=== PATIENT | female | born 1955 | race Caucasian/White ===

== ENCOUNTER → 2017-03-15 | Outpatient (CLI) | payer BC | LOC: MC.RAD 08:40 | DX: Z12.31 Encounter for screening mammogram for malignant neoplasm of breast (principal) ==

== ENCOUNTER → 2017-09-12 | Outpatient (CLI) | payer BC | LOC: COL.VAS 13:38 | DX: Z47.1 Aftercare following joint replacement surgery (principal); M79.605 Pain in left leg; R29.898 Other symptoms and signs involving the musculoskeletal system; Z96.651 Presence of right artificial knee joint ==

== ENCOUNTER → 2018-05-17 | Outpatient (CLI) | payer BC | LOC: COL.RAD 13:00 | DX: K80.20 Calculus of gallbladder without cholecystitis without obstruction (principal); N28.89 Other specified disorders of kidney and ureter; N20.0 Calculus of kidney; Z98.84 Bariatric surgery status ==

== ENCOUNTER 2018-05-23 13:49 | Inpatient (IN) | payer BC ==
[~2018-05-23] VITALS: Ht 158.8 cm; Wt 91.0 kg
[2018-06-01] VITALS (22 sets, daily range): BP systolic 101–176; BP diastolic 62–108; PULSE 60–136; TEMP 97.7–99
[2018-06-01] MEDS ORDERED: ZESTRIL 10MG10 MG PO (06:05)
[2018-06-01] MEDS ORDERED: MOBIC15 MG PO (06:05)
[2018-06-01] MEDS ORDERED: EFFEXOR-XR150 MG PO (06:06)
[2018-06-01] MEDS ORDERED: PRIL40 PO (06:06)
[2018-06-01] MEDS ORDERED: VITAMIN B COMPL1 SGL PO (06:07)
[2018-06-01] MEDS ORDERED: ICAPS AREDS SO1 EACH PO (06:07)
[2018-06-01] MEDS ORDERED: B-121000 MCG PO (06:07)
[2018-06-01] MEDS ORDERED: TYLENOL 500MG500 MG PO (06:08)
[2018-06-01] MEDS ORDERED: VITAMIN D 1001000 IU PO (06:08)
[2018-06-01] MEDS ORDERED: IRON TABLETS325 MG PO (06:09)
[2018-06-01] MEDS ORDERED: PRENATAL VITAMI1 TA3 PO (06:09)
--- NOTE | 2018-06-01 06:30 | NUR ---
The patient ambulated back to [facility] independently using a steady gait and appeared to tolerate the activity well. Vital signs obtained. Consent signed. 18G IV started in left forearm with one stick, LR infusing without difficulty. Heart Reg. Lungs clear. Bowel sounds audible. at bedside. Call light is within reach. Will continue to monitor the patient.
--- NOTE | 2018-06-01 07:35 | NUR ---
The patient was taken via cart to CT to have her nephrostomy tube and guide wire placed. The patient's chart was sent with her. Will continue to monitor the patiet when she returns to the unit.
--- NOTE | 2018-06-01 08:10 | NUR ---
PT IS DOING WELL.
--- NOTE | 2018-06-01 08:20 | NUR ---
PT IS DOING WELL. SOME PRESSURE IS FELT.
--- NOTE | 2018-06-01 08:25 | NUR ---
0.5 VERSED AND 25 MCG FENTAYNL GIVEN FOR PRESSURE. PT DOING WELL
--- NOTE | 2018-06-01 08:40 | NUR ---
0843 PT WAS GIVEN 1MG VERSED AND 50MCG FENTANYL. PT TOLERATED THE PROCEDURE. PT WAS TAKEN TO PREOP AND REPORT GIVEN TO ROSS TENA. PRESENT IN THE ROOM
--- NOTE | 2018-06-01 09:00 | NUR ---
The patient arrived back to [facility] from the radiology department with her guide wire and nephrostomy tube in place. Both are secured with a large tegaderm that appears clean, dry, and intact. The patient reports feeling the urge to urinate. The patient's vital signs were obtained with a blood pressure of 171/102. Anesthesia is to be notified of the patinet's continued increased blood pressure.
--- NOTE | 2018-06-01 09:10 | NUR ---
The patient returned to her room after ambulating to the bathroom with the assistance of two nurses and voided a moderate amount of pale red urine. The patient was given Lisinopril 10 mg as ordered by anesthesia at this time. The patient's remains at her bedside. The patient reports increased pain at this time. Anesthesia is to be notified of the patient's reports of pain. Will continue to monitor the patient.
--- NOTE | 2018-06-01 09:28 | NUR ---
PT WAS POSITIONED ON TABLE. TIME OUT DONE. INT PATENT. MONITORING EQUIPMENT PLACED.
--- NOTE | 2018-06-01 09:29 | NUR ---
TOLERATING PROCEDURE WELL. GIVEN INITIAL DOSE OF 1 VERSED AND 50 FENTAYNL AT 0750
--- NOTE | 2018-06-01 09:30 | NUR ---
The patient was given a PRN dose of Morphine 2 mg IV at this time. The patient appears in visible pain at this time. Will continue to monitor the patient.
--- NOTE | 2018-06-01 09:31 | NUR ---
PT TOLERATING WELL
--- NOTE | 2018-06-01 09:37 | NUR ---
PT HAVING LOTS OF PAIN AND PRESSURE. 0.5 MG VERSED AND 25 MCG FENTANYL GIVEN. PT FEELILNG BETTER
--- NOTE | 2018-06-01 09:38 | NUR ---
PT STATES SHE HAS TO GO TO [facility]. PT INFORMED THAT THE WIRE IS IN THE BLADDER AND IS IRRITATING THE BLADDER WALL.
--- NOTE | 2018-06-01 09:43 | NUR ---
The patient calls out with call light to report continued increased pain and was given a PRN dose of Morphine 2 mg at this time. The patient is gripping the side rails and rocking back and forth in discomfort. Anesthesia is to be notified of the patient's continued increased pain with what appears to be no relief from the morphine.
--- NOTE | 2018-06-01 09:55 | NUR ---
The patient was given a dose of Versed and Zofran from Yannick Fletcher CRNA. The nurse adiministered 0.5 mg of Dilaudid IV at this time. The patient was placed on 2L of oxygen per nasal cannula and her oxygen saturation is 100%. remains at her bedside. Will continue to monitor the patient.
--- NOTE | 2018-06-01 10:08 | NUR ---
The patient appears to be resting comfortably on her left side with her eyes closed at this time. Respirations even and unlabored. The patient has oxygen 2L per nasal cannula in place at this with an oxygen saturation of 100%. Call light is within reach. The patient's remains at her bedside. Will continue to monitor the patient.
[2018-06-01 13:45] LABS: HEMATOCRIT 49.4 % (37.0-47.0); HEMOGLOBIN 15.8 g/dl (12.5-16.0); MEAN CELL VOLUME 98 fl (80.0-100.0); MEAN CORPUSCULAR HEMOGLOBIN 31 pg (27.0-31.0); MEAN CORPUSCULAR HGB CONC 32 g/dl (33.0-37.0); MEAN PLATELET VOLUME 9.3 fl (7.4-10.4); PLATELET COUNT 201 K/mm3 (130-400); RED BLOOD COUNT 5.06 M/mm3 (4.10-5.30); REDCELL DISTRIBUTION WIDTH-CV 12.4 % (11.5-14.5)
[2018-06-01 13:56] LABS: BILIRUBIN,TOTAL 0.4 mg/dL (0.0-1.0); CALCIUM 9.3 mg/dL (8.4-10.2); CHOLESTEROL RISK RATIO 3.5; CREATININE, serum 0.65 mg/dL (0.52-1.25); MAGNESIUM 1.8 mg/dL (1.6-2.3); POTASSIUM 4.2 mmol/L (3.4-5.0); TOTAL PROTEIN 6.9 gm/dL (6.4-8.2)
[2018-06-01 14:18] LABS: BAND 1 % (0-10); LYMPHOCYTE 4 % (20.0-51.0); NEUTROPHILS 93 % (42.0-75.2); PLATELET ESTIMATE NORMAL (NORMAL)
[2018-06-01 14:25] LABS: THYROID STIMULATING HORMONE 1.91 uIU/mL (0.465-4.680)
[2018-06-01 17:34] LABS: BASO % 0.1 % (0.0-2.0); GRAN # 14.2 (1.4-6.5); GRAN % 89.9 % (42.2-75.2); HEMATOCRIT 44.8 % (37.0-47.0); HEMOGLOBIN 14.6 g/dl (12.5-16.0); LYMPH # 0.3 (1.2-3.4); LYMPH % 2.1 % (20.0-51.0); MEAN CELL VOLUME 96 fl (80.0-100.0); MEAN CORPUSCULAR HEMOGLOBIN 31 pg (27.0-31.0); MEAN CORPUSCULAR HGB CONC 33 g/dl (33.0-37.0); MEAN PLATELET VOLUME 9.5 fl (7.4-10.4); MONO # 1.2 (0.1-0.6); MONO % 7.4 % (1.7-9.3); PLATELET COUNT 208 K/mm3 (130-400); RED BLOOD COUNT 4.69 M/mm3 (4.10-5.30); REDCELL DISTRIBUTION WIDTH-CV 12.5 % (11.5-14.5)
--- NOTE | 2018-06-01 19:45 | NUR ---
Pt. sitting up in bed at this time. Pt. is A&OX3, assessment complete. IV to lt. forearm patent, IV fluids infusing per orders. Gauze dressing to rt. lateral flank CDI. Barker catheter to DD, tea colored urine noted, with some clots. Pt. denies pain or other needs at this time. Call light within reach.
[2018-06-02 04:16] VITALS: BP 124/90; PULSE 84; TEMP 99.1
--- NOTE | 2018-06-02 06:16 | NUR ---
Pt. slept off and on through the night. Pt. remains A&OX3. IV to lt. forearm infiltrated, new site started to rt. forearm. Pt. tolerated well. IV fluids infusing per orders. Pt. denies pain or other needs.
[2018-06-02 07:02] LABS: BASO % 0.2 % (0.0-2.0); EOS # 0.1 (0.0-0.7); EOS % 1.2 % (0-4.0); GRAN # 7.3 (1.4-6.5); HEMATOCRIT 39.7 % (37.0-47.0); HEMOGLOBIN 12.8 g/dl (12.5-16.0); LYMPH # 1.3 (1.2-3.4); LYMPH % 12.7 % (20.0-51.0); MEAN CELL VOLUME 98 fl (80.0-100.0); MEAN CORPUSCULAR HEMOGLOBIN 32 pg (27.0-31.0); MEAN CORPUSCULAR HGB CONC 32 g/dl (33.0-37.0); MEAN PLATELET VOLUME 9.7 fl (7.4-10.4); MONO # 1.1 (0.1-0.6); MONO % 11.6 % (1.7-9.3); PLATELET COUNT 185 K/mm3 (130-400); RED BLOOD COUNT 4.06 M/mm3 (4.10-5.30); REDCELL DISTRIBUTION WIDTH-CV 12.7 % (11.5-14.5)
[2018-06-02 07:10] LABS: CALCIUM 8.6 mg/dL (8.4-10.2); CREATININE, serum 0.75 mg/dL (0.52-1.25); POTASSIUM 4.3 mmol/L (3.4-5.0)
[2018-06-02 07:35] VITALS: BP 98/67; PULSE 79; TEMP 98.9
--- NOTE | 2018-06-02 10:14 | NUR ---
Patient alert and oriented, answers questions appropriately. See assessment. Barker catheter discontinued at 0650 this a.m. No c/o at this time.
--- NOTE | 2018-06-02 10:43 | NUR ---
Lillie Caruso and Tian here to see patient.
[2018-06-02 11:42] VITALS: BP 142/79; PULSE 83; TEMP 98.5
--- NOTE | 2018-06-02 12:03 | NUR ---
Plan is to return home with Partner Calin . Patient reports that Calin is her healthcare proxy, nothing in writing. Patient denies the use of any DME, PCP is reported as Dmitri Lynch. Patient reports that she uses [facility] for RX. Declines home health. Patients care concerns are, " I want to have some dietary information." Action: SW requested items from pt's nurse and educated pt on resources. No additional needs identified.
--- NOTE | 2018-06-02 12:29 | NUR ---
Nib Finisher offered prayer and support with patient while spouse was in room.
[2018-06-02 15:56] VITALS: BP 116/70; PULSE 78; TEMP 98.3
--- NOTE | 2018-06-02 16:29 | NUR ---
Care resumed from Michelle TENA. Patient up independent in room. She has voided pink tinged urine. Taking adequate Po intake. Denies nausea. Tele on, VSS. Patient provided with toothbrush. She reports not feeling up to a shower. Kyle cooper.
--- NOTE | 2018-06-02 17:55 | NUR ---
Patient sitting up visiting on the phone. Dinner ordered, she denies needs. Will monitor & report off to night nurse Aquiles.
[2018-06-02 19:25] VITALS: BP 119/77; PULSE 86; TEMP 98.9
--- NOTE | 2018-06-02 20:36 | NUR ---
Pt. sitting up in chair at this time. Pt. is A&OX3, assessment complete. INT to rt. forearm patent. Dressing to rt. latereral flank CDI. Pt. reports pain at a 4 at this time. Pt reports she will call when ready for pain medication. Pt. denies further needs, call light within reach.
[2018-06-03 03:40] VITALS: BP 132/91; PULSE 79; TEMP 99
--- NOTE | 2018-06-03 05:42 | NUR ---
Pt. slept well through the night. Pt. remains A&OX3. Pt. denies pain or other needs. Call light within reach.
[2018-06-03 08:01] VITALS: BP 135/88; PULSE 73; TEMP 98.7
--- NOTE | 2018-06-03 10:38 | NUR ---
Discharge instructions reviewed with patient and spouse, verbalized understanding. Discharged ambulatory to auto/home with spouse at 1035.
== END 2018-06-03 10:35 | disposition home or self-care (01) | DRG 660 ==
LOC: INPTSU 06-01 05:07 → SURG 06-01 07:30
PROVIDERS: Internal Medicine Cardiovascular Disease; ADMIT Urology
PROC: 0T733DZ Dilation of Right Kidney Pelvis with Intraluminal Device, Percutaneous Approach (ICD-10-PCS; 2018-06-01)
PROC: 0TC34ZZ Extirpation of Matter from Right Kidney Pelvis, Percutaneous Endoscopic Approach (ICD-10-PCS; principal; 2018-06-01 10:00)
DX: N20.0 Calculus of kidney (principal); N39.0 Urinary tract infection, site not specified; I10 Essential (primary) hypertension; Z86.718 Personal history of other venous thrombosis and embolism; I49.1 Atrial premature depolarization; R00.0 Tachycardia, unspecified; B96.1 Klebsiella pneumoniae [K. pneumoniae] as the cause of diseases classified elsewhere; I95.2 Hypotension due to drugs; T46.4X5A Adverse effect of angiotensin-converting-enzyme inhibitors, initial encounter
CPT/HCPCS: A4314; A9284; C1726; C1769; C1894; C2617; J0690; J1170; J1956; J2250; J2270; J2405; J2543; J2704; J2710; J3010; J3475; J7030; J7120; Q9967

== ENCOUNTER → 2018-05-23 | Outpatient (CLI) | payer BC | LOC: COL.RAD 13:54 | DX: N20.0 Calculus of kidney (principal); N28.9 Disorder of kidney and ureter, unspecified; R93.421 Abnormal radiologic findings on diagnostic imaging of right kidney ==

== ENCOUNTER → 2018-05-29 | Outpatient (CLI) | payer BC | LOC: MC.RAD 04-18 07:40 | DX: Z12.31 Encounter for screening mammogram for malignant neoplasm of breast (principal) ==

== ENCOUNTER → 2018-07-02 | Outpatient (CLI) | payer BC ==
[~2018-07-02] MED LIST: B-121000 MCG PO; EFFEXOR-XR150 MG PO; ICAPS AREDS SO1 EACH PO; IRON TABLETS325 MG PO; MOBIC15 MG PO; PRENATAL VITAMI1 TA3 PO; PRIL40 PO; TYLENOL 500MG500 MG PO; VITAMIN B COMPL1 SGL PO; VITAMIN D 1001000 IU PO; ZESTRIL 10MG10 MG PO
== END ==
LOC: COL.RAD 07:47
DX: N20.0 Calculus of kidney (principal); E21.3 Hyperparathyroidism, unspecified
CPT/HCPCS: A9500

== ENCOUNTER → 2019-06-03 | Outpatient (CLI) | payer BC | LOC: MC.RAD 08:15 | DX: Z12.31 Encounter for screening mammogram for malignant neoplasm of breast (principal) ==

== ENCOUNTER 2019-12-17 15:04 | Inpatient (IN) | payer BC ==
[~2019-12-17] VITALS: Ht 158.8 cm; Wt 93.3 kg
[~2019-12-17 15:04] MED LIST changes: -VITAMIN D 1001000 IU PO; +VITAMIN D31000 IU PO
[2020-01-14] VITALS (12 sets, daily range): BP systolic 103–146; BP diastolic 64–81; PULSE 73–99; TEMP 97.4–98.3
[2020-01-14] MEDS ORDERED: LOPRESSOR 550 MG/TAB PO (06:40)
[2020-01-14] MEDS ORDERED: UROCIT-K 1010 MEQ PO (06:41)
[2020-01-14] MEDS ORDERED: BACTRIM DS 8001 TAB PO (06:47)
[2020-01-14 10:55] LABS: BASO % 0.2 % (0.0-2.0); EOS % 0.2 % (0-4.0); GRAN # 11.7 (1.4-6.5); GRAN % 88.1 % (42.2-75.2); HEMATOCRIT 45.3 % (37.0-47.0); HEMOGLOBIN 14.4 g/dl (12.5-16.0); LYMPH # 1.3 (1.2-3.4); LYMPH % 9.8 % (20.0-51.0); MEAN CELL VOLUME 95 fl (80.0-100.0); MEAN CORPUSCULAR HEMOGLOBIN 30 pg (27.0-31.0); MEAN CORPUSCULAR HGB CONC 32 g/dl (33.0-37.0); MEAN PLATELET VOLUME 9.4 fl (7.4-10.4); MONO # 0.2 (0.1-0.6); MONO % 1.1 % (1.7-9.3); PLATELET COUNT 266 K/mm3 (130-400); RED BLOOD COUNT 4.77 M/mm3 (4.10-5.30)
[2020-01-14 11:09] LABS: CALCIUM 8.3 mg/dL (8.4-10.2); CREATININE, serum 1.19 (0.52-1.25); POTASSIUM 4.9 mmol/L (3.4-5.0)
--- NOTE | 2020-01-14 12:09 | NUR ---
Patient to room via bed from PACU. Alert and oriented but drowsy. Having some pain in her neck and also when takes in deep breaths. Abd lap sites x5 with swiftset, all edges well approximated, no redness/swelling/discharge from any of the sites. LINUS drain to right lower abd compressed with minimal bloody drainage in tubing and bulb. SCDs are in place. Lung sounds clear. Has oxymask in place with oxygen at 5L. SpO2 at 93%. Respiratory rate 16. Oriented to room.
--- NOTE | 2020-01-14 13:56 | NUR ---
Rating pain on right side 8/10 and requests something stronger for pain medication. Administer pain medication as prescribed. Patient sitting up in bed eating clear liquid tray. Denies additional needs at this time.
--- NOTE | 2020-01-14 15:35 | NUR ---
Patient lying in bed in supine position. Sharp pain in right side has gone, only has mid abd pain rating 5/10 at this time that she describes as an ache. LINUS drain compressed with minimal bloody discharge in tubing and bulb. Dressing to LINUS site CDI. Lap sites x5 with all incisions with edges well approximated, swiftset in place, no redness/discharge/swelling noted. Barker to dependent drainage draining tea colored urine. Patient denies any additional needs at this time.
--- NOTE | 2020-01-14 20:21 | NUR ---
Resting in bed. Assessment complete. Lungs clear. Heart sounds normal. Bowels active x4. Pulses present throughout. No edema noted. IV left forearm without complications. Reports 9/10 pain. Given tramadol. X6 lap sites CDI. LINUS drain to bulb suctions. LINUS drain site bloody drainage present. Denies other needs. Barker to dependent drainage. Call light in reach. Will monitor.
--- NOTE | 2020-01-14 22:14 | NUR ---
Reports 8/10 pain after tramadol administration. Given PRN oxycodone. Denies needs. Call light in reach.
--- NOTE | 2020-01-14 23:47 | NUR ---
Resting in bed. Reports oxycodone decreased pain to 4/10. Denies other needs at this time. Call light in reach.
--- NOTE | 2020-01-15 01:52 | NUR ---
Resting in bed. Denies needs. Call light in reach.
[2020-01-15 03:53] VITALS: BP 121/83; PULSE 66; TEMP 98.1
--- NOTE | 2020-01-15 04:21 | NUR ---
Reported 6/10 pain. Will give schedule tylenol. Does not wish to have oxycodone at this time. Denies other needs. Call light in reach.
--- NOTE | 2020-01-15 05:58 | NUR ---
Reports 8/10 pain. Given PRN oxycodone. Denies other needs. Call light in reach.
--- NOTE | 2020-01-15 06:16 | NUR ---
Patient required x1 dose of tramadol and x2 doses of oxycodone for pain control throughout night. Bulb suction on LINUS drain with bloody drainage. Otherwise uneventful night. Resting in bed this AM. Call light in reach.
[2020-01-15 06:24] LABS: BASO % 0.3 % (0.0-2.0); EOS # 0.1 (0.0-0.7); EOS % 0.4 % (0-4.0); GRAN # 10.5 (1.4-6.5); GRAN % 73.2 % (42.2-75.2); HEMATOCRIT 42.2 % (37.0-47.0); HEMOGLOBIN 13.3 g/dl (12.5-16.0); LYMPH # 2.6 (1.2-3.4); LYMPH % 17.8 % (20.0-51.0); MEAN CELL VOLUME 96 fl (80.0-100.0); MEAN CORPUSCULAR HEMOGLOBIN 30 pg (27.0-31.0); MEAN CORPUSCULAR HGB CONC 32 g/dl (33.0-37.0); MEAN PLATELET VOLUME 9.8 fl (7.4-10.4); MONO # 1.2 (0.1-0.6); PLATELET COUNT 242 K/mm3 (130-400)
[2020-01-15 06:55] LABS: CALCIUM 8.2 mg/dL (8.4-10.2); MAGNESIUM 2.1 mg/dL (1.6-2.3)
--- NOTE | 2020-01-15 07:15 | NUR ---
Report given to DARINEL Martinez
[2020-01-15 07:41] VITALS: BP 109/67; PULSE 95; TEMP 98
--- NOTE | 2020-01-15 08:20 | NUR ---
TAMERA Whiting here to see patient.
--- NOTE | 2020-01-15 09:13 | NUR ---
Initial visit; Patient enjoys visiting and was receptive to prayer and thanked Chlorobutadiene Scrubber Operator for offering God's blessings.
--- NOTE | 2020-01-15 09:30 | NUR ---
Patient alert and oriented, answers questions appropriately. See assessment. Abdomen soft, non tender, non distended. Bowel sounds audible x4 quads. No flatus. Lap sites with edges well approximated, no redness or drainage noted. LINUS drain to LLQ with small amount serosanguinous drainage noted. ERAS protocol reviewed with patient. Patient hesitant to get OOB, states she was told she had to stay in bed for 48hours. Reviewed with patient activity orders per Dr Peterson. No other c/o at this time.
--- NOTE | 2020-01-15 09:32 | NUR ---
Barker catheter removed at 0915, tolerated well.
--- NOTE | 2020-01-15 11:08 | NUR ---
Dr Peterson here to see patient.
[2020-01-15 11:24] VITALS: BP 151/90; PULSE 70; TEMP 97.7
--- NOTE | 2020-01-15 11:24 | NUR ---
SW met with the patient to discuss discharge plan. The patient lives in [place] with her , Calin (ph#[phone]). She reports independence with ADLs and has a cane available to her, if needed. The patient's PCP is Dr. Dmitri Lynch and she receives her medications at [facility]. She reports no difficulties obtaining her meds. The patient does not have advanced directives, but she states that her and her have drawn up paperwork and are working on completing them. The patient plans to return home with her upon discharge. No additional needs at this time.
--- NOTE | 2020-01-15 13:59 | NUR ---
LINUS drain removed at this time per drs order.
[2020-01-15 16:00] VITALS: BP 118/78; PULSE 87; TEMP 98.4
[2020-01-15 20:31] VITALS: BP 123/72; PULSE 94; TEMP 98.6
--- NOTE | 2020-01-15 21:00 | NUR ---
PT SITTING UP IN CHAIR AT BEDSIDE. REPORTS PAIN IS "TOLERABLE". HAS LAP SITES X6, OLD DRAIN SITE TO ABDOMEN WITH GAUZE. IS ALERT AND ORIENTED X4. REPORTS PASSING GAS.
[2020-01-16 00:10] VITALS: BP 124/82; PULSE 110; TEMP 97.8
[2020-01-16 04:41] VITALS: BP 110/58; PULSE 72; TEMP 97.6
--- NOTE | 2020-01-16 06:40 | NUR ---
Pt reports more pain this morning, takes Oxycodone 10mg po with scheduled AM meds.
--- NOTE | 2020-01-16 08:00 | NUR ---
PATIENT IS A&O. VSS. TELE INPLACE. PATIENT REPORTS PAIN IN ABD IS TOLERABLE, SHE RECEIVED PAIN MEDS BEFORE SHIFT CHANGE. PATIENT AMBULATING IN ROOM INDEPENDENTLY. ABD LAP SITES X6 ARE CD&I AND SAND MIXER. ABD IS ROUND, SOFT & WITH POSITIVE BOWL SOUNDS. PATIENT IS PASSING GAS, NO BM YET. PATIENT IS EAT/DRINK/VOIDING SUFFICENT AMOUNTS. NO C/O N/V. LEFT FORARM IV TO INT. BREAKFAST TRAY AT BEDSIDE. AM MEDS GIVEN. HEAD TO TOE ASSESSMENT WNL. PATIENT HOPING TO DISCHARGE HOME LATER TODAY. NO OTHER NEEDS AT THIS TIME. CALL LIGHT IN REACH.
[2020-01-16] MEDS ORDERED: LOPRESSOR 225 MG/TAB PO (08:09)
[2020-01-16 08:27] VITALS: BP 124/82; PULSE 50; TEMP 98.6
--- NOTE | 2020-01-16 09:02 | NUR ---
Follow-up; Patient using phone, College Admissions Counselor wished her well and God's blessings.
--- NOTE | 2020-01-16 12:30 | NUR ---
Patient to room 332 from PACU. at the bedside. Patient easily awakes with verbal commmand then falls back to sleep. Yenny RN at the beside. VSS. IV CDI, fluids to gravity. VS monitored post op. Left hip CDI, ice applied. SCD's bilateral legs. Nurse oriented patient and . No further needs expressed from the patient or . Call light within reach
[2020-01-16 13:03] VITALS: BP 121/89; PULSE 114; TEMP 98.7
--- NOTE | 2020-01-16 16:23 | NUR ---
Discharge paperwork reviewed with patient. Patient verbalized an understanding to follow doctors orders. IV removed, tip intact, gauze and coban applied. Patient tolerated well. Personal belongings with patient. No further needs expressed from the patient. Patient taken by wheelchair to vehicle by nursing staff.
== END 2020-01-16 16:20 | disposition home or self-care (01) | DRG 658 ==
LOC: INPTSU 01-14 05:35 → SURG 01-14 07:30
PROVIDERS: ADMIT Urology
PROC: 8E0W4CZ Robotic Assisted Procedure of Trunk Region, Percutaneous Endoscopic Approach (ICD-10-PCS; 2020-01-14)
PROC: 0TB04ZZ Excision of Right Kidney, Percutaneous Endoscopic Approach (ICD-10-PCS; principal; 2020-01-14 07:30)
DX: C64.1 Malignant neoplasm of right kidney, except renal pelvis (principal); I10 Essential (primary) hypertension; R09.02 Hypoxemia; K59.00 Constipation, unspecified; Z98.84 Bariatric surgery status; K21.9 Gastro-esophageal reflux disease without esophagitis; E78.5 Hyperlipidemia, unspecified; Z86.711 Personal history of pulmonary embolism; F32.9 Major depressive disorder, single episode, unspecified; F41.9 Anxiety disorder, unspecified; Z87.442 Personal history of urinary calculi; Z90.710 Acquired absence of both cervix and uterus
CPT/HCPCS: 99223; 99231-AI; 99232-AI; A4314; A9284; J0330; J1100; J2250; J2405; J2704; J3010; J7030; J7120

== ENCOUNTER → 2020-06-04 | Outpatient (CLI) | payer MEDICARE ==
[~2020-06-04] MED LIST changes: +BACTRIM DS 8001 TAB PO; +LOPRESSOR 225 MG/TAB PO; +LOPRESSOR 550 MG/TAB PO; +UROCIT-K 1010 MEQ PO
== END ==
LOC: MC.RAD 07:00
DX: Z12.31 Encounter for screening mammogram for malignant neoplasm of breast (principal)

== ENCOUNTER 2020-07-13 09:22 | Outpatient (RCR) | payer MEDICARE | END 2020-10-11 | disposition still patient (30) | LOC: WSST | DX: R09.89 Other specified symptoms and signs involving the circulatory and respiratory systems (principal); R43.2 Parageusia ==

== ENCOUNTER → 2020-07-14 | Outpatient (CLI) | payer MEDICARE | LOC: COL.RAD 08:17 | DX: R09.89 Other specified symptoms and signs involving the circulatory and respiratory systems (principal) ==

== ENCOUNTER → 2021-06-28 | Outpatient (CLI) | payer MEDICARE | LOC: MC.RAD 07:15 | DX: Z12.31 Encounter for screening mammogram for malignant neoplasm of breast (principal) ==

== ENCOUNTER → 2021-08-04 | Outpatient (CLI) | payer MEDICARE | LOC: COL.RAD 08-03 10:30 | DX: K82.8 Other specified diseases of gallbladder (principal) ==

== ENCOUNTER → 2021-09-10 | Outpatient (CLI) | payer MEDICARE | LOC: COL.RAD 09:07 | DX: S22.32XA Fracture of one rib, left side, initial encounter for closed fracture (principal); M54.6 Pain in thoracic spine; R10.9 Unspecified abdominal pain; M19.90 Unspecified osteoarthritis, unspecified site | CPT/HCPCS: A9503 ==

== ENCOUNTER → 2021-11-24 | Outpatient (CLI) | payer MEDICARE | LOC: MHCPAIN 13:40 | DX: M47.817 Spondylosis without myelopathy or radiculopathy, lumbosacral region (principal); M53.3 Sacrococcygeal disorders, not elsewhere classified; M54.16 Radiculopathy, lumbar region | CPT/HCPCS: G0463 ==

== ENCOUNTER → 2021-12-09 | Outpatient (CLI) | payer MEDICARE | LOC: MHCPAIN 08:20 | DX: M47.817 Spondylosis without myelopathy or radiculopathy, lumbosacral region (principal); M54.50 Low back pain, unspecified; M53.3 Sacrococcygeal disorders, not elsewhere classified ==

== ENCOUNTER → 2021-12-15 | Outpatient (CLI) | payer MEDICARE | LOC: MHCPAIN 10:41 | DX: M47.817 Spondylosis without myelopathy or radiculopathy, lumbosacral region (principal); M54.50 Low back pain, unspecified; M53.3 Sacrococcygeal disorders, not elsewhere classified | CPT/HCPCS: G0463 ==

== ENCOUNTER → 2021-12-30 | Outpatient (CLI) | payer MEDICARE | LOC: MHCPAIN 08:58 | DX: M47.817 Spondylosis without myelopathy or radiculopathy, lumbosacral region (principal); M53.3 Sacrococcygeal disorders, not elsewhere classified; M54.50 Low back pain, unspecified ==

== ENCOUNTER → 2022-01-20 | Outpatient (CLI) | payer MEDICARE | LOC: COL.RAD 08:00 | DX: N20.0 Calculus of kidney (principal); J98.11 Atelectasis; K44.9 Diaphragmatic hernia without obstruction or gangrene; K59.00 Constipation, unspecified ==

== ENCOUNTER → 2022-03-23 | Outpatient (CLI) | payer MEDICARE | LOC: MHCPAIN 11:57 | DX: M47.896 Other spondylosis, lumbar region (principal); M54.6 Pain in thoracic spine; M54.16 Radiculopathy, lumbar region; M53.3 Sacrococcygeal disorders, not elsewhere classified | CPT/HCPCS: G0463 ==

== ENCOUNTER → 2022-07-07 | Outpatient (CLI) | payer MEDICARE | LOC: MC.RAD 13:50 | DX: Z12.31 Encounter for screening mammogram for malignant neoplasm of breast (principal) ==

== ENCOUNTER 2023-03-13 12:46 | Observation (INO) | payer MEDICARE ==
[~2023-03-13] VITALS: Ht 157.5 cm; Wt 104.1 kg
[~2023-03-13 12:46] MED LIST changes: -ICAPS AREDS SO1 EACH PO; +PRESERVISION A1 EAC3 PO; +ZOFRAN ODT4 MG PO
[2023-03-13 14:14] LABS: BASO % 0.2 % (0.0-2.0); EOS # 0.1 K/mm3 (0.0-0.7); EOS % 1.2 % (0.0-4.0); GRAN # 6.4 K/mm3 (1.4-6.5); GRAN % 71.3 % (42.2-75.2); HEMATOCRIT 40.6 % (37.0-47.0); HEMOGLOBIN 13.5 g/dl (12.5-16.0); LYMPH # 1.5 K/mm3 (1.2-3.4); LYMPH % 16.3 % (20.0-51.0); MEAN CELL VOLUME 94 fl (80.0-100.0); MEAN CORPUSCULAR HEMOGLOBIN 31 pg (27-31); MEAN CORPUSCULAR HGB CONC 33 g/dl (33.0-37.0); MEAN PLATELET VOLUME 9.8 fl (7.4-10.4); MONO % 10.7 % (1.7-9.3); PLATELET COUNT 234 K/mm3 (130-400); RED BLOOD COUNT 4.34 M/mm3 (4.10-5.30)
[2023-03-13 14:21] LABS: INR 1.5 (0.8-3.0); PROTHROMBIN TIME 15.7 SECONDS (9.7-12.8)
[2023-03-13 14:24] LABS: PARTIAL THROMBOPLASTIN TIME 27.3 SECONDS (26.0-37.0)
[2023-03-13 14:36] LABS: ALANINE AMINOTRANSFERASE 14 U/L (0-55); ALBUMIN 2.8 gm/dL (3.4-4.8); ALKALINE PHOSPHATASE 86 U/L (40-150); ANION GAP 13 mmol/L (7-16); AST,SGOT 19 U/L (5-34); BLOOD UREA NITROGEN 13 mg/dL (10-20); CALCIUM 8.4 mg/dL (8.4-10.2); CARBON DIOXIDE 22 mmol/L (23-31); CHLORIDE 104 mmol/L (98-107); CREATININE, serum 0.69 mg/dL (0.57-1.11); GLUCOSE 114 mg/dL (70-99); POTASSIUM 3.8 mmol/L (3.5-4.5); SODIUM 139 mmol/L (136-145); TOTAL PROTEIN 6.3 gm/dL (6.2-8.1)
[2023-03-13 14:46] LABS: TROPONIN-I < 0.010 ng/mL (0.00-0.033)
[2023-03-13 15:27] LABS: COLLECTION METHOD CLEAN CATCH
[2023-03-13] MEDS ORDERED: COUMADIN 1MG1 MG/TAB PO (15:51)
[2023-03-13] MEDS ORDERED: COUMADIN 2MG2 MG/TAB PO (15:52)
[2023-03-13 15:53] LABS: URINE APPEARANCE Hazy (CLEAR/HAZY); URINE COLOR Yellow (YELLOW)
[2023-03-13 15:54] LABS: URINE BACTERIA Many /hpf (NONE SEEN); URINE BLOOD Negative (NEGATIVE); URINE GLUCOSE Negative (NEGATIVE); URINE KETONE 3+ (NEGATIVE); URINE NITRATE Positive (NEGATIVE); URINE PROTEIN(semi-quant) Negative (NEGATIVE); URINE RBC None Seen /hpf (0-2); URINE UROBILINOGEN 0.2 E.U/dL (0.2-1.0)
[2023-03-13] MEDS ORDERED: EFFEXOR XR75 MG/CAP PO (16:15)
[2023-03-13] MEDS ORDERED: LOPRESSOR 550 MG/TAB PO (16:27)
[2023-03-13] MEDS ORDERED: LIPITOR 40MG TA40 MG PO (16:30)
[2023-03-13] MEDS ORDERED: LYRICA 75MG CAP75 MG PO ×2 (16:33)
[2023-03-13] MEDS ORDERED: XALATAN EYE DROPS OU (16:35)
[2023-03-13] MEDS ORDERED: FOSAMAX 35MG35 MG PO (16:35)
[2023-03-13] MEDS ORDERED: PRINIVIL20 MG PO (16:36)
[2023-03-13] MEDS ORDERED: MULTIPLE VITAMI1 CAP PO (16:37)
[2023-03-13] MEDS ORDERED: CALCIUM 600MG+D1 TAB PO (16:38)
[2023-03-13] MEDS ORDERED: VITAMINC1000TA PO (16:39)
[2023-03-13] MEDS ORDERED: IRON BISGLYCINA28 MG PO (16:40)
[2023-03-13 17:14] VITALS: BP 151/100; PULSE 125; TEMP 98.1
--- NOTE | 2023-03-13 17:15 | NUR ---
PATIENT ADMITTED TO MEDICAL UNIT AT THIS TIME. SHIFT ASSESSMENT COMPLETED. PATIENT PLACED ON TELEMETRY. IVF INFUSING. PATIENT AND ORIENTED TO ROOM. CALL LIGHT WITHIN REACH, BED ALARMS IN PLACE. WILL CONTINUE TO MONITOR.
[2023-03-13 17:19] LABS: TSH w REFLEX 0.562 uIU/mL (0.350-4.940)
--- NOTE | 2023-03-13 17:24 | NUR ---
Warfarin Initial Dosing Pharmacy Note Ordering Provider: Ldaan Maxwell E., MD Indication: VTE/PE Treatment LABS: INR 1.5 Recommendation: Will give additional 1 mg x1 tonight. Patient took home dose of 3 mg po daily prior to admission this morning. Will start Warfarin 4 mg po qHS dose on 03/14/23. Pharmacy will continue to closely monitor daily INR levels. Home Regimen: Warfarin 3 mg po daily
--- NOTE | 2023-03-13 17:32 | NUR ---
NOTIFIED DR. CARD OF PATIENTS ELEVATED B/P, INSTRUCTED TO ADMINISTED EVENING DOSE OF LOPRESSOR EARLY.
[2023-03-13 17:34] VITALS: BP_SYST 151
[2023-03-13 19:12] VITALS: BP 168/112; PULSE 128; TEMP 98.4
[2023-03-13 20:30] VITALS: BP_SYST 168
--- NOTE | 2023-03-13 20:45 | NUR ---
Called TAMERA Matt, and updated on patient's elevated HR with frequent PVCs, and notified of elevated BP. Called back and ordered stat labs, as well as a one time dose of Lisinopril. Labs obtained by laborer ammunition assembly, and given medication per orders. Patient was tearful, but this nurse sat and talked with her for a while which seemed to help. Updated patient on medications, labs, and monitoring. Patient has Swelling and bruising to left leg from left knee surgy. Dressing to left knee is CDI. Has IV fuids running per orders to left AC. Having pain to left knee, and had been given PRN Roxicodone around 1715. Given scheduled Lyrica. Voices no questions, needs, or concerns at this time. In bed with call light within reach. High fall risk precautions in place. Bed alarm on.
[2023-03-13 20:49] VITALS: PULSE 95
[2023-03-13 20:51] LABS: MAGNESIUM 1.5 mg/dL (1.6-2.6); POTASSIUM 3.9 mmol/L (3.5-4.5)
--- NOTE | 2023-03-13 22:19 | NUR ---
Magnesium back at 1.5, Potassium 3.9. Called to TAMERA Matt, and new order received for replacement of Magnesium. Patient continues to have pain to left knee, order received for one dose of Roxicodone. Started Magnesium and given Roxicodone per orders.
[2023-03-14 00:16] VITALS: BP 151/94; PULSE 106; TEMP 98.3
[2023-03-14 00:32] VITALS: BP_SYST 151
[2023-03-14 04:16] VITALS: BP 149/86; PULSE 114; TEMP 98
[2023-03-14 05:14] VITALS: BP_SYST 149
[2023-03-14 05:27] LABS: HEMOGLOBIN 11.7 g/dl (12.5-16.0); MEAN CELL VOLUME 95 fl (80.0-100.0); MEAN CORPUSCULAR HEMOGLOBIN 31 pg (27-31); MEAN CORPUSCULAR HGB CONC 32 g/dl (33.0-37.0); MEAN PLATELET VOLUME 9.9 fl (7.4-10.4); PLATELET COUNT 218 K/mm3 (130-400); RED BLOOD COUNT 3.82 M/mm3 (4.10-5.30); REDCELL DISTRIBUTION WIDTH-CV 13.1 % (11.5-14.5)
[2023-03-14 05:32] LABS: HEMATOCRIT 36.2 % (37.0-47.0)
[2023-03-14 05:45] LABS: ALBUMIN 2.4 gm/dL (3.4-4.8); CALCIUM 7.7 mg/dL (8.4-10.2); CREATININE, serum 0.62 mg/dL (0.57-1.11); PHOSPHOROUS 3.2 mg/dL (2.3-4.7); POTASSIUM 3.6 mmol/L (3.5-4.5)
[2023-03-14 05:48] LABS: INR 1.7 (0.8-3.0); PROTHROMBIN TIME 18.4 SECONDS (9.7-12.8)
--- NOTE | 2023-03-14 05:53 | NUR ---
Patient has intermittent confusion during the night. Easily redirected, but forgetful. Completed IV fluids per orders. Voices no questions, needs, or concerns at this time. In bed with call light within reach. High fall risk precautions in place. Bed alarm on.
[2023-03-14 07:11] VITALS: BP 125/72; PULSE 100; TEMP 98.2
--- NOTE | 2023-03-14 07:55 | NUR ---
PT RESTING IN BED UPON ENTERING. ASSESSMENT DONE, PT GIVEN MEDS WITHOUT DIFFICULTY. PT REPORTS 6/10 LEFT KNEE PAIN, PRN GIVEN. PT HAS AN ABRASION TO RIGHT KNEE AND LEFT FOREARM, NO DRAINING NOTED. SILVER DRESSING NOTED TO LEFT KNEE, PT HAD THIS PLACED 03/08 AFTER LEFT TKA. PT UPDATED ON PLAN FOR THE DAY AND VERBALIZED UNDERSTANDING. PT DENIES NEEDS AT THIS TIME. BED IN LOWEST POSITION, CALL LIGHT REACH, BED ALARM ON.
--- NOTE | 2023-03-14 08:40 | NUR ---
BAILEY FROM [facility] CALLED THIS NURSE ABOUT MATERIAL OF SILVER LEFT KNEE DRESSING. DRESSING REMOVED PER [facility] REQUEST AND NOTIFIED THIS NURSE THAT 1100 IS THE PLANNED TIME FOR MRI. ALL QUESTIONS ANSWERED.
--- NOTE | 2023-03-14 08:50 | NUR ---
DRA MARTIN CALLED THIS NURSE TO SEE IF LAB CAN RUN THE PTS UA FOR URINE CULTURE. LAB CALLED AND NOTIFIED THIS NURSE THAT THEY CAN RUN THE URINE CULTURE WITH THE SAME URINE. URINE CULTURE COLLECTED IN SYSTEM.
[2023-03-14 09:00] VITALS: BP_SYST 125
--- NOTE | 2023-03-14 09:09 | NUR ---
Java Web User Interface Developer met with Patient at bedside to conduct Care Managment Assessment and discuss discharge planning. Patient lives with her in [place], [place] and is established with PCP Dr. Peacock. Patient is covered by [facility] and [facility] for insurance and states that [facility] is the best pharmacy for discharge medications. Patient denies the use of O2 and ensorses the use of a walker prior to admission stating that she has recently had her knee replaced and was scheduled to start OP PT through [facility] yesterday. PAtient reports to not have DPOA and declined form. Discharge Plan: Home with OP PT through [facility].
[2023-03-14] MEDS ORDERED: CEFTIN500 MG PO (12:48)
--- NOTE | 2023-03-14 15:48 | NUR ---
IV AND TELE REMOVED. AQUACELL APPLIED TO LEFT KNEE BY DARINEL ARDON. PT DRESSED IN PERSONAL CLOTHES UPON ENTERING, AT BEDSIDE. DISCHARGE INSTRUCTIONS GIVEN, ALL QUESTIONS ANSWERED AND PT VERBALIZED UNDERSTANDING. PT DENIES NEEDS AT THIS TIME AND IS ESCORTED TO PERSONAL VEHICLE VIA WHEELCHAIR BY SONAL LEE.
--- NOTE | 2023-03-15 13:15 | NUR ---
Freight Car Repairer contacted Patient via phone number on file to follow-up after discharge. Patient states "I'm doing so much better" and states that her sister is at her home for support. Patient states that she has her first OP PT appointment on 03-17-23. Patient reports no concerns at this time.
== END 2023-03-14 16:06 | disposition home or self-care (01) ==
LOC: COL.ER 12:46 → MEDICAL 15:41 → COL.ER 15:41 → MEDICAL 15:41
PROVIDERS: Internal Medicine; Physician Assistant; ADMIT Hospitalist
DX: G93.41 Metabolic encephalopathy (principal); N39.0 Urinary tract infection, site not specified; R00.0 Tachycardia, unspecified; I10 Essential (primary) hypertension; E78.5 Hyperlipidemia, unspecified; Z79.899 Other long term (current) drug therapy; Z96.659 Presence of unspecified artificial knee joint; Z86.718 Personal history of other venous thrombosis and embolism; Z86.79 Personal history of other diseases of the circulatory system
CPT/HCPCS: G0378; J0696; J1650; J3475; J7030; Q9967

== ENCOUNTER → 2023-07-12 | Outpatient (CLI) | payer MEDICARE ==
[~2023-07-12] MED LIST changes: +CALCIUM 600MG+D1 TAB PO; +CEFTIN500 MG PO; +COUMADIN 1MG1 MG/TAB PO; +COUMADIN 2MG2 MG/TAB PO; +EFFEXOR XR75 MG/CAP PO; +FOSAMAX 35MG35 MG PO; +IRON BISGLYCINA28 MG PO; +LIPITOR 40MG TA40 MG PO; +LYRICA 75MG CAP75 MG PO; +MULTIPLE VITAMI1 CAP PO; +PRINIVIL20 MG PO; +VITAMINC1000TA PO; +XALATAN EYE DROPS OU
== END ==
LOC: MHCPAIN 10:20
DX: M54.50 Low back pain, unspecified (principal); M47.896 Other spondylosis, lumbar region; M48.061 Spinal stenosis, lumbar region without neurogenic claudication
CPT/HCPCS: G0463

== ENCOUNTER → 2023-08-24 | Outpatient (CLI) | payer MEDICARE ==
[~2023-08-24] MED LIST changes: +Lidocaine PF 2% (20 MG/ML) 5 ML VIAL ONE; +Midazolam 2 MG/2 ML VIAL ONE; +fentaNYL 50 MCG/ML 2 ML VIAL ONE
== END ==
LOC: MHCPAIN 08:04
DX: M47.817 Spondylosis without myelopathy or radiculopathy, lumbosacral region (principal); M54.50 Low back pain, unspecified
CPT/HCPCS: J0665; J2250; J3010

== ENCOUNTER → 2023-12-27 | Outpatient (CLI) | payer MEDICARE ==
[~2023-12-27] MED LIST changes: -Lidocaine PF 2% (20 MG/ML) 5 ML VIAL ONE; -Midazolam 2 MG/2 ML VIAL ONE; -fentaNYL 50 MCG/ML 2 ML VIAL ONE
== END ==
LOC: MHCPAIN 13:31
DX: M47.26 Other spondylosis with radiculopathy, lumbar region (principal); M46.1 Sacroiliitis, not elsewhere classified; M48.061 Spinal stenosis, lumbar region without neurogenic claudication; M54.50 Low back pain, unspecified; M79.2 Neuralgia and neuritis, unspecified
CPT/HCPCS: G0463

== ENCOUNTER → 2024-01-10 | Outpatient (CLI) | payer MEDICARE | LOC: COL.RAD 07:43 | DX: M51.16 Intervertebral disc disorders with radiculopathy, lumbar region (principal); M47.26 Other spondylosis with radiculopathy, lumbar region; M48.061 Spinal stenosis, lumbar region without neurogenic claudication ==

== ENCOUNTER → 2024-01-17 | Outpatient (CLI) | payer MEDICARE | LOC: MHCPAIN 08:04 | DX: M54.50 Low back pain, unspecified (principal); M47.816 Spondylosis without myelopathy or radiculopathy, lumbar region; G57.81 Other specified mononeuropathies of right lower limb; Z96.653 Presence of artificial knee joint, bilateral; Z85.520 Personal history of malignant carcinoid tumor of kidney; Z90.5 Acquired absence of kidney | CPT/HCPCS: G0463 ==

== ENCOUNTER → 2024-02-29 | Outpatient (CLI) | payer MEDICARE ==
[~2024-02-29] MED LIST changes: +Iohexol 300 - 10 ML VIAL ONE; +Lidocaine PF 2% (20 MG/ML) 2 ML VIAL ONE
== END ==
LOC: MHCPAIN 08:01
DX: M54.17 Radiculopathy, lumbosacral region (principal); M54.16 Radiculopathy, lumbar region; M47.816 Spondylosis without myelopathy or radiculopathy, lumbar region
CPT/HCPCS: J1100; Q9967

== ENCOUNTER → 2024-03-04 | Outpatient (CLI) | payer MEDICARE ==
[~2024-03-04] MED LIST changes: -Iohexol 300 - 10 ML VIAL ONE; -Lidocaine PF 2% (20 MG/ML) 2 ML VIAL ONE
== END ==
LOC: MC.RAD 07:49
DX: N63.15 Unspecified lump in the right breast, overlapping quadrants (principal)

== ENCOUNTER → 2024-03-06 | Outpatient (CLI) | payer MEDICARE | LOC: COL.RAD 08:37 | DX: K44.9 Diaphragmatic hernia without obstruction or gangrene (principal); R91.8 Other nonspecific abnormal finding of lung field; Z98.84 Bariatric surgery status ==

== ENCOUNTER → 2024-03-14 | Outpatient (CLI) | payer MEDICARE ==
[~2024-03-14] MED LIST changes: +Iohexol 300 - 100 ML VIAL IV ONE; +NS 100 ML IV SCH
== END ==
LOC: COL.RAD 07:57
DX: N28.89 Other specified disorders of kidney and ureter (principal); K80.20 Calculus of gallbladder without cholecystitis without obstruction; N28.1 Cyst of kidney, acquired; Z98.890 Other specified postprocedural states
CPT/HCPCS: Q9967